=== PATIENT | female | born 1955 | race Caucasian/White ===

== ENCOUNTER 2018-07-24 23:02 | Inpatient (IN) | payer OTHER ==
[~2018-07-24] VITALS: Ht 167.6 cm; Wt 136.7 kg
[2018-07-25] MEDS ORDERED: SOD CHLORIDE 0.9% 1,000 ML IV STA (02:26)
[2018-07-25] MEDS ORDERED: PIPER-TAZO 3.375 GM IV (PMX) 100 ML IVPB STA (03:18)
[2018-07-25] MEDS ORDERED: morphine 4 MG/ML VIAL IV STA (03:18)
[2018-07-25] MEDS ORDERED: ONDANSETRON 4 MG INJ IV STA (03:18)
[2018-07-25] MEDS ORDERED: POTASSIUM CHLORIDE (SR) 20 MEQ TAB PO STA (03:28)
--- NOTE | 2018-07-25 03:28 | HP ---
Date/Time of Note Date/Time of Note DATE: 07/25/18 TIME: 03:28 Assessment/Plan VTE Prophylaxis Pharmacological prophylaxis: LMWH Lines/Catheters IV [facility]from [facility]): Saline Lock Assessment/Plan Hospital Course This is a 63-year-old female being admitted to the [facility] floor for: #1 right lower extremity redness: Suspect cellulitis versus venous stasis versus other. As symptoms have been going on for 1 month and she does have warmth and redness I will treat at the current time for suspected cellulitis with vancomycin IV per pharmacy. We will check a CRP and ESR level. I will order bilateral lower extremity venous Dopplers to rule out DVT. #2 peripheral vascular disease: Continue aspirin/statin #3 hypertension: Resume amlodipine, HCTZ/losartan #4 diabetes mellitus: We will check hemoglobin A1c, insulin sliding scale #5 hypothyroidism: Patient is on 150 mcg alternating with 175 mcg of Synthroid. At the current time we will put her on 150 mcg check a TSH level. #6 morbid obesity: We will check hemoglobin A1c, lipid panel, TSH #7 hyperlipidemia: Continue statin #8 DVT GI prophylaxis: Lovenox, no GI prophylaxis indicated Further treatment strategy will be implemented as per the clinical course. Result Diagram: 07/25/18 0236 07/25/18 0236 Results 24hrs Laboratory Tests Test 07/25/18 02:36 White Blood Count 10.9 H Red Blood Count 5.52 H Hemoglobin 15.5 Hematocrit 49.4 H Mean Corpuscular Volume 89.5 Mean Corpuscular Hemoglobin 28.1 L Mean Corpuscular Hemoglobin Concent 31.4 L Red Cell Distribution Width 13.6 Platelet Count 214 Mean Platelet Volume 10.9 H Immature Granulocytes % 0.400 Neutrophils % 62.5 Lymphocytes % 24.2 Monocytes % 7.2 Eosinophils % 5.2 Basophils % 0.5 Nucleated Red Blood Cells % 0.0 Immature Granulocytes # 0.040 H Neutrophils # 6.8 Lymphocytes # 2.6 Monocytes # 0.8 Eosinophils # 0.6 H Basophils # 0.1 Nucleated Red Blood Cells # 0.0 Urine Color STRAW Urine Clarity CLEAR Urine pH 5.0 Urine Specific [place] 1.030 Urine Ketones NEGATIVE Urine Nitrite NEGATIVE Urine Bilirubin NEGATIVE Urine Urobilinogen NEGATIVE Urine Leukocyte Esterase NEGATIVE Urine Hemoglobin NEGATIVE Urine Glucose 3+ H Urine Total Protein NEGATIVE Sodium Level 143 Potassium Level 3.4 L Chloride Level 101 Carbon Dioxide Level 31 Anion Gap 11 Blood Urea Nitrogen 18 Creatinine 0.67 Est Glomerular Filtrat Rate mL/min > 60 Glucose Level 141 Calcium Level 9.3 Total Bilirubin 0.4 Direct Bilirubin 0.00 Indirect Bilirubin 0.4 Aspartate Amino Transf (AST/SGOT) 21 Alanine Aminotransferase (ALT/SGPT) 24 Alkaline Phosphatase 113 Total Protein 8.4 H Albumin 4.6 Globulin 3.80 H Albumin/Globulin Ratio 1.21 Lipase 356 H HPI/ROS Admit Date/Time Admit Date/Time Hx of Present Illness Chief complaint: Right lower extremity redness x1 month This is a 63-year-old female with a past medical history of peripheral vascular disease, hypertension, hyperlipidemia, diabetes mellitus, hypothyroidism who presented to [facility] emergency room with complaints of right lower extremity redness x1 month. Patient reports that she has had the symptoms of right lower extremity redness x1 month. She states it does feel hot at times. She has applied Neosporin to her. Her son continued to notice the symptoms so he advised her to come into the emergency room. She has been taking care of her sister who is dealing with cancer over the last few months and has not been able to seek care for herself. She denies any fevers. She denies any lower extremity swelling. She does report a history of peripheral vascular disease status post bilateral lower extremity stenting in the past. She has her primary care doctor in [facility] for which she was going to go see on Tuesday. Allergies: Ibuprofen Medications: Amlodipine 5 mg p.o. daily Aspirin 81 mg p.o. daily Niacin 500 mg p.o. daily Dicyclomine 20 mg p.o. twice daily Trulicity 1.5 mg injection subcu Tuesday Losartan/hydrochlorothiazide 100-25 mg p.o. daily Simvastatin 20 mg p.o. daily Synthroid 150 mcg p.o. every other day/Synthroid 175 mcg p.o. every other day ROS Const: As per HPI Eyes : No pain discharge or redness or change in visual acuity ENT: No pain, sore throat, congestion, congestion, dysphagia or discharge Respiratory: No shortness of breath, cough, sputum, wheezing, or pleuritic pain Cardiovascular: No chest pain, palpitation, PND, or edema GI : no change in appetite, abdominal pain, nausea, vomiting, diarrhea, constipation, or change in the color his stool Genitourinary: No dysuria, hematuria, flank pain , discharge or CVA tenderness Musculoskeletal: As per HPI Skin: As per HPI Neuro: No headache, dizziness, syncope, seizure, focal weakness Endocrine: No polyuria, polydipsia, temperature intolerance Psych: No hallucination, depression, anxiety or suicidal ideation PMH/Family/Social Past Medical History Peripheral vascular disease, hypertension, hyperlipidemia, diabetes mellitus, hypothyroidism, Medications Current Medications Piperacillin Sod/ Tazobactam Sod 100 ml @ 200 mls/hr ONCE STAT IVPB ; Start 07/25/18 at 03:18; Stop 07/25/18 at 03:47 Coded Allergies: ibuprofen (Verified Allergy, Unknown, hives, 07/24/18) Past Surgical History Bilateral stenting to lower extremities Family History Significant Family History: no pertinent family hx Social History Alcohol Use: none Smoking Status: Never smoker Drug Use: none Exam/Review of Systems Vital Signs Vitals Vital Signs Date Temp Pulse Resp B/P (MAP) Pulse Ox O2 O2 Flow FiO2 Time Delivery Rate 07/25/18 77 27 125/58 97 Room Air 03:14 (80) 07/24/18 99.3 23:14 Exam Exam General: Patient is a pleasant female currently lying in bed in no acute distress, she does appear to be slightly anxious HEENT: Atraumatic, normocephalic. The pupils are equal, round and reactive. Extraocular motor are intact Neck: Supple with full range of motion. No rigidity or meningismus Chest: Nontender Lungs: Clear to auscultation bilaterally no crackles rales or wheezing Heart: Normal S1-S2, Regular rhythm and rate. No murmur, S3, or S4 Abdomen: Morbidly obese, soft , nontender, nondistended , bowel sounds are present. No guarding no rebound tenderness , No masses or organomegaly. No costovertebral temporal angle mass Extremities: Mild right lower extremity swelling greater than the left Skin: Right lower extremity erythema and warmth circumferentially, signs of veno us stasis of bilateral lower extremities Neurologic: Normal mental status, speech normal, cranial nerves II through XII are intact, motor and sensory are intact, no focal weakness JAYESH VASQUEZ July 25, 2018 03:28
[2018-07-25] MEDS ORDERED: NACL 0.9% 3 ML SYG IV SCH (03:30)
[2018-07-25] MEDS ORDERED: HYDROCODONE/APAP (5/325) TAB PO PRN (03:30)
[2018-07-25] MEDS ORDERED: ONDANSETRON 4 MG INJ IV PRN (03:30)
[2018-07-25] MEDS ORDERED: DOCUSATE SODIUM 100 MG CAP PO PRN (03:30)
[2018-07-25] MEDS ORDERED: morphine 2 MG INJ IV PRN (03:30)
[2018-07-25] MEDS ORDERED: BISACODYL (EC) 5 MG TAB PO PRN (03:30)
[2018-07-25] MEDS ORDERED: ACETAMINOPHEN 325 MG TAB PO PRN (03:30)
--- NOTE | 2018-07-25 03:48 | ERD ---
ER Documentation Chief Complaint Chief Complaint right lower leg swelling/redness/pain x 1 month HPI This very pleasant 63-year female has a right lower leg swelling redness and pain for the last month getting progressively worse. Denies fevers or chills. Has a history of chronic stasis ulcers. Denies any other current complaints. ROS All systems reviewed and are negative except as per history of present illness. Allergies Allergies: Coded Allergies: ibuprofen (Verified Allergy, Unknown, hives, 07/24/18) PMhx/Soc History of Surgery: Yes (THYRODECTOMY,R KNEE SURGERY) Hx Respiratory Disorders: Yes (ASTHMA ) Hx Cardiac Disorders: Yes (HTN) Hx Alcohol Use: No Hx Substance Use: No Hx Tobacco Use: No Smoking Status: Never smoker Physical Exam Vitals Vital Signs Date Temp Pulse Resp B/P (MAP) Pulse Ox O2 O2 Flow FiO2 Time Delivery Rate 07/25/18 77 27 125/58 97 Room Air 03:14 (80) 07/24/18 99.3 74 18 143/89 95 23:14 (107) Physical Exam Const: No acute distress Head: Atraumatic Eyes: Normal Conjunctiva ENT: Normal External Ears, Nose and Mouth. Neck: Full range of motion. No meningismus. Resp: Clear to auscultation bilaterally Cardio: Regular rate and rhythm, no murmurs Abd: Soft, non tender, non distended. Normal bowel sounds Skin: Erythema and induration noted to the right lower extremity with mild weeping. No abscess noted. Normal pulses Back: No midline or flank tenderness Ext: No cyanosis, or edema Neur: Awake and alert Psych: Normal Mood and Affect Result Diagram: 07/25/18 0236 07/25/18 0236 Results 24 hrs Laboratory Tests Test 07/25/18 02:36 White Blood Count 10.9 10^3/ul Red Blood Count 5.52 10^6/ul Hemoglobin 15.5 g/dl Hematocrit 49.4 % Mean Corpuscular Volume 89.5 fl Mean Corpuscular Hemoglobin 28.1 pg Mean Corpuscular Hemoglobin Concent 31.4 g/dl Red Cell Distribution Width 13.6 % Platelet Count 214 10^3/UL Mean Platelet Volume 10.9 fl Immature Granulocytes % 0.400 % Neutrophils % 62.5 % Lymphocytes % 24.2 % Monocytes % 7.2 % Eosinophils % 5.2 % Basophils % 0.5 % Nucleated Red Blood Cells % 0.0 /100WBC Immature Granulocytes # 0.040 10^3/ul Neutrophils # 6.8 10^3/ul Lymphocytes # 2.6 10^3/ul Monocytes # 0.8 10^3/ul Eosinophils # 0.6 10^3/ul Basophils # 0.1 10^3/ul Nucleated Red Blood Cells # 0.0 10^3/ul Urine Color STRAW Urine Clarity CLEAR Urine pH 5.0 Urine Specific [place] 1.030 Urine Ketones NEGATIVE mg/dL Urine Nitrite NEGATIVE mg/dL Urine Bilirubin NEGATIVE mg/dL Urine Urobilinogen NEGATIVE mg/dL Urine Leukocyte Esterase NEGATIVE Shereen/ul Urine Hemoglobin NEGATIVE mg/dL Urine Glucose 3+ mg/dL Urine Total Protein NEGATIVE mg/dl Sodium Level 143 mmol/L Potassium Level 3.4 mmol/L Chloride Level 101 mmol/L Carbon Dioxide Level 31 mmol/L Anion Gap 11 Blood Urea Nitrogen 18 mg/dl Creatinine 0.67 mg/dl Est Glomerular Filtrat Rate mL/min > 60 mL/min Glucose Level 141 mg/dl Calcium Level 9.3 mg/dl Total Bilirubin 0.4 mg/dl Direct Bilirubin 0.00 mg/dl Indirect Bilirubin 0.4 mg/dl Aspartate Amino Transf (AST/SGOT) 21 IU/L Alanine Aminotransferase (ALT/SGPT) 24 IU/L Alkaline Phosphatase 113 IU/L Total Protein 8.4 g/dl Albumin 4.6 g/dl Globulin 3.80 g/dl Albumin/Globulin Ratio 1.21 Lipase 356 U/L Current Medications Medications Dose Sig/Kevin Start Time Status Last (Trade) Ordered Route PRN Stop Time Admin Dose Reason Admin Sodium 1,000 ml @ Q1H STAT 07/25/18 DC 07/25/18 Chloride 1,000 mls/hr IV 02:26 02:51 07/25/18 03:25 Morphine 4 mg ONCE STAT 07/25/18 DC 07/25/18 Sulfate IV 03:18 03:38 (morphine) 07/25/18 03:19 Ondansetron 4 mg ONCE STAT 07/25/18 DC 07/25/18 HCl (Zofran IV 03:18 03:38 Inj) 07/25/18 03:19 Piperacillin 100 ml @ ONCE STAT 07/25/18 07/25/18 Sod/ 200 mls/hr IVPB 03:18 03:39 Tazobactam 07/25/18 03:47 Sod IV Flush 3 ml PER 07/25/18 (NS 3 ml) PROTOCOL IV 03:30 Ondansetron 4 mg Q6H PRN 07/25/18 HCl (Zofran IV 03:30 Inj) NAUSEA/VOMITI NG 650 mg Q6H PRN 07/25/18 Acetaminophen PO .PAIN 1-3 03:30 (Tylenol OR TEMP Tab) 1 tab Q6H PRN 07/25/18 Acetaminophen PO .MOD PAIN 03:30 / 4-6 Hydrocodone Bitart ([place] (5/325)) Morphine 2 mg Q4H PRN 07/25/18 Sulfate IV .SEVERE 03:30 (morphine) PAIN 7-10 Docusate 100 mg Q12H PRN 07/25/18 Sodium PO 03:30 (Colace) .CONSTIPATION Bisacodyl 5 mg DAILY PRN 07/25/18 (Dulcolax) PO 03:30 .CONSTIPATION Enoxaparin 40 mg DAILY SC 07/25/18 Sodium 09:00 (Lovenox) Potassium 40 meq ONCE STAT 07/25/18 DC Chloride PO 03:28 (Klor-Con 20) 07/25/18 03:32 Procedures/MDM Medical decision making: This is a 63-year female with extensive lower extremity cellulitis and will likely require inpatient antibiotics. Patient will be admitted to hospitalist. Started on Zosyn pending culture results. Departure Diagnosis: Primary Impression: Cellulitis Site of cellulitis: unspecified site Qualified Codes: L03.90 - Cellulitis, unspecified Condition: Stable KARL NANCE July 25, 2018 03:48
[2018-07-25] MEDS ORDERED: DIC20 PO (04:05)
[2018-07-25] MEDS ORDERED: DULA1.5P SQ (04:05)
[2018-07-25] MEDS ORDERED: LOSA1TAB25 PO (04:05)
[2018-07-25] MEDS ORDERED: SIMV20TA20 PO (04:05)
[2018-07-25] MEDS ORDERED: AMLO-145 PO (04:05)
[2018-07-25] MEDS ORDERED: ASPI-535 PO (04:07)
[2018-07-25] MEDS ORDERED: NIAC500T81 PO (04:07)
[2018-07-25 05:15] VITALS: BP 120/64; PULSE 73; RESP 18
[2018-07-25 05:42] VITALS: Ht 167.6 cm; Wt 136.7 kg
[2018-07-25] MEDS ORDERED: LEVO175T2 PO (06:00)
[2018-07-25] MEDS ORDERED: VANCOMYCIN IV PER PHARMACY XX SCH (06:30)
[2018-07-25] MEDS ORDERED: VANCOMYCIN HCL 2 GM in SOD CHLORIDE 0.9% 500 ML IVPB SCH (07:00)
[2018-07-25] MEDS: INSULIN ASPART [NOVOLOG] 3 ML PEN SC SCH ×2 (08:00→12:00)
[2018-07-25 08:37] VITALS: BP 121/60; PULSE 86; RESP 18
[2018-07-25] MEDS ORDERED: ENOXAPARIN 40 MG/0.4 ML SYG SC SCH (09:00)
[2018-07-25] MEDS ORDERED: DEXTROSE 50% 50 ML SYRINGE IV PRN ×2 (13:30)
[2018-07-25] MEDS ORDERED: GLUCAGON 1 MG INJ IM PRN (13:30)
[2018-07-25] MEDS ORDERED: GLUCOSE GEL 15 GRAM TUBE PO PRN ×2 (13:30)
[2018-07-25] MEDS ORDERED: GLUCOSE GEL 15 GRAM TUBE BUCCAL PRN (13:30)
[2018-07-25 14:49] VITALS: BP 131/60; PULSE 67; RESP 18
[2018-07-25] MEDS ORDERED: SULF1TAB31 PO (15:42)
--- NOTE | 2018-07-25 15:47 | PDOCDIS ---
Discharge Instructions DIAGNOSIS Discharge Diagnosis Cellulitis CONDITION [id number] Patient Condition: [id number] Good HOME CARE INSTRUCTIONS: [id number] Diet Instructions: [id number] Special Diet: [id number] Consistent carbohydrate ACTIVITY: [id number] Activity Restrictions: [id number] No Restrictions FOLLOW UP/APPOINTMENTS Follow-up Plan 1. Take all medications as prescribed. I prescribed Bactrim twice daily for 7 days which is an antibiotic. 2. Keep both legs elevated when in bed. If standing or walking for long periods of time, use compression stockings. 3. Your obesity is contributing to most of your health problems, including back and knee arthritis, diabetes, and high blood pressure. At 180 lbs you will no longer be obese. At 150 lbs you will be at a healthy weight. You can lose weight by eating less food, a strict exercise program is not necessary. 4. See your primary care doctor in 1-2 weeks. BIBI IRWIN MD July 25, 2018 15:47
--- NOTE | 2018-07-25 18:33 | DS ---
Date/Time of Note Date/Time of Note DATE: 07/25/18 TIME: 18:30 Discharge Summary Admission/Discharge Info Admit Date/Time July 25, 2018 at 03:21 Discharge Date/Time July 25, 2018 at 17:40 Discharge Diagnosis Cellulitis Patient Condition: Good Hx of Present Illness Chief complaint: Right lower extremity redness x1 month This is a 63-year-old female with a past medical history of peripheral vascular disease, hypertension, hyperlipidemia, diabetes mellitus, hypothyroidism who presented to [facility] emergency room with complaints of right lower extremity redness x1 month. Patient reports that she has had the symptoms of right lower extremity redness x1 month. She states it does feel hot at times. She has applied Neosporin to her. Her son continued to notice the symptoms so he advised her to come into the emergency room. She has been taking care of her sister who is dealing with cancer over the last few months and has not been able to seek care for herself. She denies any fevers. She denies any lower extremity swelling. She does report a history of peripheral vascular disease status post bilateral lower extremity stenting in the past. She has her primary care doctor in [facility] for which she was going to go see on Tuesday. Allergies: Ibuprofen Medications: Amlodipine 5 mg p.o. daily Aspirin 81 mg p.o. daily Niacin 500 mg p.o. daily Dicyclomine 20 mg p.o. twice daily Trulicity 1.5 mg injection subcu Tuesday Losartan/hydrochlorothiazide 100-25 mg p.o. daily Simvastatin 20 mg p.o. daily Synthroid 150 mcg p.o. every other day/Synthroid 175 mcg p.o. every other day Hospital Course The patient had mildly elevated WBC to 10.9. Otherwise no fevers, chills, or evidence of sepsis. She did get a dose of IV vancomycin with slight improvement of redness. Venous duplex was done without evidence for DVT. The patient was able to ambulate around the unit without difficulty. She will be discharged on PO Bactrim for 7 days. Home Meds Active Scripts Sulfamethoxazole/Trimethoprim* (Bactrim Ds* Tablet) 1 Each Tablet, 1 TAB PO BID, #14 TAB Prov:BIBI IRWIN MD 07/25/18 Reported Medications Levothyroxine Sodium* (Synthroid*) 175 Mcg Tablet, 175 MCG PO BEFORE BREAKFAST, #30 TAB 07/25/18 Niacin* (Niacin*) 500 Mg Tablet, 500 MG PO DAILY, TAB 07/25/18 Aspirin Ec (Aspir 81) 81 Mg Tablet.dr, 81 MG PO DAILY, #30 TAB 07/25/18 Dulaglutide (Trulicity) 1.5 Mg/0.5 Ml Pen.injctr, 1.5 MG SQ QMONDAY 07/25/18 Losartan-Hydrochlorothiazide (Losartan-HCTZ) 100-25 Mg Tab, 1 TAB PO DAILY for 90 Days, #90 TAKE 1 TABLET BY MOUTH EVERY DAY 07/25/18 Dicyclomine HCl (Dicyclomine HCl) 20 Mg Tablet, 20 MG PO BID for 90 Days 07/25/18 Amlodipine Besylate* (Amlodipine Besylate*) 5 Mg Tablet, 5 MG PO QHS for 90 Days, #90 TAKE 1 TABLET BY MOUTH EVERY DAY 07/25/18 Simvastatin (Simvastatin) 20 Mg Tablet, 20 MG PO QPM for 90 Days, #90 TAKE ONE TABLET BY MOUTH EACH EVENING. 07/25/18 Follow-up Plan 1. Take all medications as prescribed. I prescribed Bactrim twice daily for 7 days which is an antibiotic. 2. Keep both legs elevated when in bed. If standing or walking for long periods of time, use compression stockings. 3. Your obesity is contributing to most of your health problems, including back and knee arthritis, diabetes, and high blood pressure. At 180 lbs you will no longer be obese. At 150 lbs you will be at a healthy weight. You can lose weight by eating less food, a strict exercise program is not necessary. 4. See your primary care doctor in 1-2 weeks. Primary Care Provider Care Physician No Primary Time spent on discharge: > 30 minutes Pending Labs Laboratory Tests Test 07/25/18 02:36 07/25/18 05:16 07/25/18 05:17 07/25/18 08:35 White Blood 10.9 Count 10^3/ul (4.8-10 .8) Red Blood 5.52 Count 10^6/ul (4.20-5 .40) Hemoglobin 15.5 g/dl (12.0-16.0 ) Hematocrit 49.4 % (37.0-47.0) Mean 89.5 Corpuscular fl (82.0-101.0) Volume Mean 28.1 Corpuscular pg (29.0-33.0) Hemoglobin Mean 31.4 Corpuscular g/dl (32.0-37.0 Hemoglobin Conc ) ent Red Cell 13.6 Distribution % (11.5-14.5) Width Platelet Count 214 10^3/UL (140-41 5) Mean Platelet 10.9 Volume fl (7.4-10.4) Immature 0.400 Granulocytes % % (0.001-0.429) Neutrophils % 62.5 % (39.0-77.0) Lymphocytes % 24.2 % (15.0-51.0) Monocytes % 7.2 % (0.0-11.0) Eosinophils % 5.2 % (0.0-7.0) Basophils % 0.5 % (0.0-2.0) Nucleated Red 0.0 Blood Cells % /100WBC (0.0-0. 0) Immature 0.040 Granulocytes # 10^3/ul (0.0-0. 031) Neutrophils # 6.8 10^3/ul (1.6-7. 5) Lymphocytes # 2.6 10^3/ul (0.8-2. 9) Monocytes # 0.8 10^3/ul (0.3-0. 9) Eosinophils # 0.6 10^3/ul (0.0-0. 5) Basophils # 0.1 10^3/ul (0.0-0. 1) Nucleated Red 0.0 Blood Cells # 10^3/ul (0.0-0. 0) Urine Color STRAW (YELLOW) Urine Clarity CLEAR (CLEAR) Urine pH 5.0 (5.0-9.0) Urine Specific 1.030 (1.003-1. [place] 030) Urine Ketones NEGATIVE mg/dL (NEGATIVE ) Urine Nitrite NEGATIVE mg/dL (NEGATIVE ) Urine NEGATIVE Bilirubin mg/dL (NEGATIVE ) Urine NEGATIVE Urobilinogen mg/dL (NEGATIVE ) Urine Leukocyte NEGATIVE Shereen/ul Esterase Urine NEGATIVE Hemoglobin mg/dL (NEGATIVE ) Urine Glucose 3+ mg/dL (NEGATIVE ) Urine Total NEGATIVE Protein mg/dl (NEGATIVE ) Sodium Level 143 mmol/L (135-144 ) Potassium 3.4 Level mmol/L (3.5-5.1 ) Chloride Level 101 mmol/L (97-110) Carbon Dioxide 31 Level mmol/L (21-31) Anion Gap 11 (5-13) Blood Urea 18 mg/dl (7-20) Nitrogen Creatinine 0.67 mg/dl (0.44-1.0 0) Est Glomerular > 60 Filtrat mL/min (>60) Rate mL/min Glucose Level 141 mg/dl (70-220) Calcium Level 9.3 mg/dl (8.4-10.2 ) Total 0.4 Bilirubin mg/dl (0.2-1.3) Direct 0.00 Bilirubin mg/dl (0.00-0.2 0) Indirect 0.4 Bilirubin mg/dl (0-1.1) Aspartate Amino 21 IU/L (15-46) Transf (AST/SGO T) Alanine 24 IU/L (13-69) Aminotransferas e (ALT/SGPT) Alkaline 113 Phosphatase IU/L (42-121) Total Protein 8.4 g/dl (6.1-8.1) Albumin 4.6 g/dl (3.3-4.9) Globulin 3.80 g/dl (1.3-3.2) Albumin/Globuli 1.21 n Ratio Lipase 356 U/L (23-300) Erythrocyte 12 Sedimentation mm/Hr (0-30) Rate Magnesium 2.1 Level mg/dl (1.7-2.5 ) C-Reactive 1.7 Protein mg/dl (0.0-0.9 ) Triglycerides 88 Level mg/dl (0-149) Cholesterol 112 Level mg/dl (100-200 ) LDL 53 mg/dl Cholesterol, Calculated HDL 41 Cholesterol mg/dl (35-98) Cholesterol/HDL 2.7 RATIO Ratio Thyroid 6.440 Stimulating MIU/L (0.465-4 Hormone (TSH) .680) Hemoglobin A1c 7.3 % (0-5.9) Bedside 124 Glucose mg/dL (70-220) Test 07/25/18 12:30 Bedside 126 Glucose mg/dL (70-220) BIBI IRWIN MD July 25, 2018 18:33
[2018-07-25] MEDS ORDERED: VANCOMYCIN HCL 1.5 GM in SOD CHLORIDE 0.9% 250 ML IVPB SCH (22:00)
[2018-07-26] MEDS ORDERED: ACCU-CHEK XX SCH (02:00)
== END 2018-07-25 17:40 | disposition home or self-care (01) | DRG 603 ==
LOC: E/R 23:02 → 2NE 07-25 03:21
PROVIDERS: ADMIT Family Medicine; ATTEND Internal Medicine
DX: L03.115 Cellulitis of right lower limb (principal); Z68.42 Body mass index [BMI] 45.0-49.9, adult; I10 Essential (primary) hypertension; E11.51 Type 2 diabetes mellitus with diabetic peripheral angiopathy without gangrene; E03.9 Hypothyroidism, unspecified; E66.01 Morbid (severe) obesity due to excess calories; E78.5 Hyperlipidemia, unspecified
CPT/HCPCS: 36415; 71045; 80053; 80061; 81003; 82962; 83036; 83690; 83735; 84443; 85025; 85651; 86140; 93970; J1650; J1815; J2270; J2405; J2543; J3370; J7030; J7040; J7050